=== PATIENT | male | born 1980 | race Hispanic/Latino ===

== ENCOUNTER 2019-11-28 20:48 | Emergency (ER) | payer SELFPAY ==
[~2019-11-28] VITALS: Ht 177.8 cm; Wt 104.3 kg
[2019-11-28] MEDS ORDERED: ACETAMINOPHEN 325 MG TAB PO ONE (21:45)
--- NOTE | 2019-11-28 21:57 | Emergency Department Note ---
History of Present Illnes History of Present Illness Chief Complaint: COVID PUI History of Present Illness This is a 39 year old male PATIENT HAS BEEN HAVING BODY ACHES, FEVER, CHILLS SINCE THURSDAY MORNING, STATES THAT HIS BOSS TESTED COVID POSITIVE AT WORK AND THAT HE WAS EXPOSED . Historian: Patient Arrival Mode: Car Onset (how long ago): day(s) (4) Location: all over Quality: fever, body aches, cough Radiation: Reports non-radiation Severity: mild Onset quality: gradual Duration (how long): day(s) (4) Progression: worsening Chronicity: new Context: Reports recent illness Relieving factors: none Exacerbating factors: none Associated symptoms: Reports cough, Reports fever/chills, Reports other (body aches) Past Medical/Family History Physician Review I have reviewed the patient's past medical and family history. Any updates have been documented here. Past Medical History Recent Fever: Yes Clinical Suspicion of Infectio: Yes New/Unexplained Change in Ment: No Past Medical History: None Past Surgical History: Appendectomy Social History Smoking Cessation: Never Smoker Counseling Performed: No Alcohol Use: Social Any Illegal Drug Use: No TB Exposure/Symptoms: No Physically hurt or threatened: No Other Last Tetanus: UNKNOWN Is patient up to date on immun: No Last Flu: HAS NOT HAD Last Pneumovax: NOT APPLICABLE Review of Systems Review of Systems Constitutional: Reports as per HPI EENTM: Reports no symptoms Cardiovascular: Reports no symptoms Respiratory: Reports as per HPI Gastrointestinal: Reports no symptoms Genitourinary: Reports no symptoms Musculoskeletal: Reports no symptoms Integumentary: Reports no symptoms Neurological: Reports no symptoms Psychological: Reports no symptoms Endocrine: Reports no symptoms Hematological/Lymphatic: Reports no symptoms Physical Exam Related Data Allergies: Coded Allergies: No Known Allergies (Unverified , 11/28/19) Triage Vital Signs Vital Signs Date Time Temp Pulse Resp B/P (MAP) Pulse Ox O2 Delivery O2 Flow Rate FiO2 11/28/19 21:25 100.4 98 20 142/89 96 Vital signs reviewed: Yes Physical Exam CONSTITUTIONAL Constitutional: Present well-developed, Present well-nourished HENT HENT: Present normocephalic, Present atraumatic, Present oropharynx clear/moist, Present nose normal HENT L/R: Present left ext ear normal, Present right ext ear normal EYES Eyes: Reports PERRL, Reports conjunctivae normal NECK Neck: Present ROM normal PULMONARY Pulmonary: Present effort normal, Present breath sounds normal CARDIOVASCULAR Cardiovascular: Present regular rhythm, Present heart sounds normal, Present capillary refill normal, Present normal rate GASTROINTESTINAL Abdominal: Present soft, Present nontender, Present bowel sounds normal GENITOURINARY Genitourinary: Present exam deferred SKIN Skin: Present warm, Present dry MUSCULOSKELETAL Musculoskeletal: Present ROM normal NEUROLOGICAL Neurological: Present alert, Present oriented x 3, Present no gross motor or sensory deficits PSYCHOLOGICAL Psychological: Present mood/affect normal, Present judgement normal Results Laboratory Laboratory Laboratory Tests Test 11/28/19 21:45 Imaging Imaging results reviewed: Yes Impressions Procedure: [id number] DX/CHEST SINGLE (PORTABLE) Exam Date: 11/28/19 Exam Time: 2200 REPORT STATUS: Signed Examination: Single AP view of the chest. COMPARISON: None. INDICATION: Fever, shortness of breath IMPRESSION: 1. Lines and Tubes: None 2. Lungs are well-inflated. Bilateral patchy opacities, predominantly in the right upper lobe, right perihilar region and left retrocardiac region, suggesting pneumonia (including viral). No consolidation or effusion. 3. Mild prominence of the cardiac silhouette, which may be partly due to AP projection. Pulmonary vasculature is normal. 4. No acute bony abnormalities. Signed by: Dr. Felton Cooney M.D. on 11/28/2019 10:33 PM Assessment & Plan Medical Decision Making MDM pt with fever, body aches and cough, with covid exposure cxr, covid 19 ordered to eval for pneumonia, covid 19 tylenol 650 mg po pt cxr consistent with viral pneumonia, pt oxygen saturation 99% on room air, no tachypnea, pt will be discharged to [facility] for 14 days, will call pt with covid test result when it returns. Assessment & Plan Final Impression: (1) Viral pneumonia (2) Viral syndrome (3) Fever Depart Disposition: HOME, SELF-CARE Last Vital Signs Date Time Temp Pulse Resp B/P (MAP) Pulse Ox O2 Delivery O2 Flow Rate FiO2 11/28/19 21:32 100.4 97 18 132/85 99 Medications in the ED Acetaminophen 650 mg ONCE ONCE PO ; Start 11/28/19 at 21:45; Stop 11/28/19 at 21:46; Status DC HUSSEIN VELEZ MD Nov 28, 2019 21:57
--- NOTE | 2019-11-28 22:36 | Diagnostic Imaging Report ---
Examination: Single AP view of the chest. COMPARISON: None. INDICATION: Fever, shortness of breath IMPRESSION: 1. Lines and Tubes: None 2. Lungs are well-inflated. Bilateral patchy opacities, predominantly in the right upper lobe, right perihilar region and left retrocardiac region, suggesting pneumonia (including viral). No consolidation or effusion. 3. Mild prominence of the cardiac silhouette, which may be partly due to AP projection. Pulmonary vasculature is normal. 4. No acute bony abnormalities. Signed by: Dr. Felton Cooney M.D. on 11/28/2019 10:33 PM
[2019-11-29 00:13] VITALS: BP 116/71
--- NOTE | 2019-11-29 02:13 | NUR ---
attempted to call pt to inform of covid result. pt did not provide contact information.
--- NOTE | 2019-11-29 02:33 | NUR ---
pt informed of covid result by and this nurse to translate. pt instructed that should be retested due to possible false negative result. pt verbalized understanding of instructions. pt given phone number for covid testing sites.
== END 2019-11-29 00:47 | disposition home or self-care (01) ==
LOC: ER 20:48 → EDBD 20:48 → ER 11-29 00:47
DX: R50.9 Fever, unspecified (principal); R05 Cough; J12.9 Viral pneumonia, unspecified; B34.9 Viral infection, unspecified; Z11.59 Encounter for screening for other viral diseases
CPT/HCPCS: 71045; 87635; 99283